=== PATIENT | female | born 1980 | race Two or more races ===

== ENCOUNTER 2017-11-19 06:20 | Emergency (ER) | payer OTHER ==
--- NOTE | 2017-11-19 06:52 | EDM.PDOC ---
ED HPI GENERAL MEDICAL PROBLEM - General Chief Complaint: SHOP LEAD Problem Stated Complaint: [id number] CANT GET TAMPON OUT Time Seen by Provider: 11/19/17 06:40 Source of Information: Reports: Patient History Limitations: Reports: No Limitations - History of Present Illness INITIAL COMMENTS - FREE TEXT/NARRATIVE: ED with concern unsure if tampon stuck, Has been attempting to get out this am, - Related Data Allergies Allergy/AdvReac Type Severity Reaction Status Date / Time sulfamethoxazole Allergy Hives Verified 11/19/17 06:24 [From Bactrim] trimethoprim [From Bactrim] Allergy Hives Verified 11/19/17 06:24 Home Meds: Home Meds Fexofenadine/Pseudoephedrine [Tarah-D 12 Hour] 1 tab PO DAILY 11/19/17 [ History] Naproxen Sodium [Aleve] 2 tab PO DAILY 11/19/17 [History] Past Medical History - Infectious Disease History Infectious Disease History: Reports: C-Difficile - Past Surgical History GI Surgical History: Reports: Cholecystectomy Female Surgical History: Reports: Tubal Ligation Musculoskeletal Surgical History: Reports: Other (See Below) Other Musculoskeletal Surgeries/Procedures:: rotator cuff surgery, cyst removed from hand Social & Family History - Tobacco Use Smoking Status *Q: Never Smoker Second Hand Smoke Exposure: No - Caffeine Use Caffeine Use: Reports: Coffee - Recreational Drug Use Recreational Drug Use: No ED ROS GENERAL - Review of Systems Review Of Systems: ROS reveals no pertinent complaints other than HPI. ED EXAM, RENAL/ - Physical Exam Exam: See Below Exam Limited By: No Limitations General Appearance: Alert, Anxious, Mild Distress Ears: Normal External Exam Nose: Normal Inspection Throat/Mouth: Normal Voice Respiratory/Chest: No Respiratory Distress (Female) Exam: Normal External Exam, Normal Speculum Exam, Normal Bimanual Exam, Other (Scant dark discharge from cervical oss consistant with menstrual flow. No tampon visualized in vaginal vault. ) Course - Vital Signs Last Recorded V/S: Last Vital Signs Temp 97.5 F 11/19/17 06:26 Pulse 86 11/19/17 06:26 Resp 16 11/19/17 06:26 BP 133/92 H 11/19/17 06:26 Pulse Ox 98 11/19/17 06:26 Departure - Departure Time of Disposition: 06:46 Disposition: Home, Self-Care 01 Condition: Good Clinical Impression: Anxiety about health - Discharge Information Instructions: Pelvic Pain, Female Additional Instructions: follow up with primary care if vaginal discharge or odor ibuprofen for discomfort No tampon use today
== END 2017-11-19 06:53 | disposition home or self-care (01) ==
LOC: DL.ED 06:20 → EDUNIT# 06:20 → DL.ED 06:53
DX: F41.9 Anxiety disorder, unspecified (principal); Z88.2 Allergy status to sulfonamides; Z88.1 Allergy status to other antibiotic agents
CPT/HCPCS: 99283